=== PATIENT | female | born 2000 | race American Indian/Alaskan Native ===

== ENCOUNTER 2020-11-16 07:09 | Day surgery (SDC) | payer BC ==
[2020-11-13 13:04] LABS: Hemoglobin 12.3 gm/dl (10.1-14.3); Mean Corpuscular HGB Conc 32 % (30-34); Mean Corpuscular Volume 74 fl (79-97); Platelet Count 211 K/mm3 (140-440); Red Blood Count 5.12 M/mm3 (3.65-5.03)
[~2020-11-16 07:09] MED LIST: LACTATED RINGERS 1,000 ML IV SCH
[2020-11-16] MEDS ORDERED: ONDANSETRON 4 MG/2 ML INJ IV PRN (08:43)
[2020-11-16] MEDS ORDERED: HYDROcodone/ACETAMINOPHEN 5-325 MG TAB PO PRN (08:43)
--- NOTE | 2020-11-16 08:43 | Anesthesia Consultation ---
Anesthesia Consult and Med Hx Date of service: 11/16/20 - Airway Anesthetic Teeth Evaluation: Good (braces) ROM Head & Neck: Adequate Mental/Hyoid Distance: Adequate Mallampati Class: Class III Intubation Access Assessment: Possibly Difficult - Pre-Operative Health Status ASA Pre-Surgery Classification: ASA3 Proposed Anesthetic Plan: General - Pulmonary Hx Smoking: No Hx Respiratory Symptoms: No - Cardiovascular System Hx Hypertension: No - Central Nervous System CVA: No - Endocrine Hx Renal Disease: No Hx Liver Disease: No Hx Insulin Dependent Diabetes: No Hx Non-Insulin Dependent Diabetes: No Hx Thyroid Disease: No - Other Systems Hx Obesity: Yes (BMI 48) - Additional Comments Anesthesia Medical History Comments: No prrior [place]. Complains of significant anxiety in preop.
--- NOTE | 2020-11-16 08:43 | Anesthesia Day of Surgery ---
Anesthesia Day of Surgery - Day of Surgery Patient Examined: Yes Patient H&P Reviewed: Yes Patient is NPO: Yes
[2020-11-16] MEDS ORDERED: SCOPOLAMINE TRANSDERMAL PATCH 72 HR TD NR (09:00)
[2020-11-16] MEDS ORDERED: MIDAZOLAM 2 MG/2 ML INJ IV NR (09:00)
[2020-11-16] MEDS ORDERED: SILVER NITRATE APPLICATOR 1 EA TP ONE (09:30)
[2020-11-16] MEDS ORDERED: propofoL 200 MG/20 ML VIAL IV ONE (10:00)
[2020-11-16] MEDS ORDERED: ONDANSETRON 4 MG/2 ML INJ ONE (10:00)
[2020-11-16] MEDS ORDERED: KETOROLAC 30 MG/1 ML INJ ONE (10:00)
[2020-11-16] MEDS ORDERED: LIDOCAINE PF 100 MG/5 ML (CARDIAC SYRINGE) IV ONE (10:00)
[2020-11-16] MEDS ORDERED: dexAMETHasone 20 MG/5 ML VIAL ONE (10:00)
--- NOTE | 2020-11-16 10:21 | Short Stay Summary ---
Short Stay Documentation Date of service: 11/16/20 Narrative H&P: Patient is a 20-year-old 0 who presents with ongoing feeling of irregular vaginal bleeding and menstrual.'s. She has tried oral contraceptives without relief. We are now proceeding today with D&C hysteroscopy to clean out endometrial lining. - History H&P: obtained from office Past Medical History: No medical history Past Surgical History: No surgical history Social history: no significant social history, single - Allergies and Medications Current Medications: Allergies No Known Allergies Allergy (Unverified 11/09/20 17:27) Home Medications Medication Instructions Recorded Confirmed Last Taken Type No Known Home Medications [No 11/09/20 11/09/20 Unknown History Reported Home Medications] Active Medications Hydrocodone Bitart/Acetaminophen (Hydrocodone/Acetaminophen 5-325 Mg Tab) 2 each PO ONCE PRN PRN Reason: Pain, Moderate (4-6) Hydromorphone HCl (Hydromorphone 1 Mg/1 Ml Inj) 0.5 mg IV Q10MIN PRN PRN Reason: Pain , Severe (7-10) Stop: 11/16/20 23:00 Lactated Ringer's (Lactated Ringers) 1,000 mls @ 100 mls/hr IV DIRECT FOZIA Stop: 11/16/20 23:59 Last Admin: 11/16/20 08:23 Dose: 100 mls/hr Documented by: Midazolam HCl (Midazolam 2 Mg/2 Ml Inj) 2 mg IV PREOP NR Stop: 11/16/20 23:59 Last Admin: 11/16/20 09:16 Dose: 2 mg Documented by: Ondansetron HCl (Ondansetron 4 Mg/2 Ml Inj) 4 mg IV ONCE PRN PRN Reason: Nausea And Vomiting Scopolamine (Scopolamine Transdermal Patch 72 Hr) 1 each TD PREOP NR Stop: 11/16/20 23:00 Last Admin: 11/16/20 09:14 Dose: 1 each Documented by: - Physical exam General appearance: no acute distress Integumentary: no rash, no growths HEENT: Atraumatic Lungs: Clear to auscultation, Normal air movement Breasts: deferred Heart: Regular rate, Normal S1, Normal S2 Gastrointestinal: normal, normoactive bowel sounds Female Genitourinary: deferred Rectal Exam: deferred Extremities: no ischemia, No edema - Brief post op/procedure progress note Date of procedure: 11/16/20 Pre-op diagnosis: DUB, Menorrhagia Post-op diagnosis: same Procedure: D&C with hysteroscopy Anesthesia: MAC Findings: Normal appearing uterine cavity Surgeon: ALYX BURNS Estimated blood loss: minimal Pathology: list (endometrial currettings) Specimen disposition: to lab Condition: stable - Hospital course Hospital course: Unremarkable - Disposition Condition at discharge: Good Disposition: 01 HOME / SELF CARE / HOMELESS Short Stay Discharge Plan Activity: advance as tolerated Weight Bearing Status: Weight Bear as Tolerated Diet: regular Follow up with: ALYX BURNS MD [Staff Physician] - 14 Days Prescriptions: Ibuprofen [Motrin] 800 mg PO Q8HR PRN #30 tablet PRN Reason: Pain, Mild (1-3)
[2020-11-16] MEDS ORDERED: fentaNYL 100 MCG/2 ML INJ ONE (10:36)
[2020-11-16] MEDS ORDERED: KETAMINE/STERILE WATER 50 MG/ML SYRINGE ONE (10:50)
[2020-11-16] MEDS ORDERED: SODIUM CHLORIDE 0.9% IRRIG SOLN 2000 ML IR ONE (11:04)
--- NOTE | 2020-11-16 11:25 | Operative Report ---
Operative Report Operative Report: Pre Op Diagnosis: Abnormal uterine bleeding Post Op Diagnosis: Same Procedure: D&C with Hysteroscopy Surgeon: Jyothi Billings MD EBL: Minimal IVF: 1000 cc Urine output: 200 cleared in the procedure Specimen: Endometrial curetting Complications: None Procedure: The patient returned to the OR with IV running and in place. She was given general anesthesia without difficulty. She was then placed in dorsolithotomy position and prepped and draped in normal sterile fashion. Her bladder was drained approximately 200 cc of clear yellow urine. Attention was then turned to the patient's vagina. A bivalve speculum placed in the vagina, the uterus was then identified and grasped with single-tooth tenaculum. It was then gently sounded to approximately 7 cm in length. It was then gently dilated up to approximately 21 mm. The hysteroscope was then introduced into the uterine cavity. It revealed endometrial lining. The scope was then removed, and the curettage was performed. This was done to there was a gritty texture noted in all 4 quadrants of the uterus. A second look was made using hyst eroscope. There was excellent hemostasis. At this point all instruments the patient's vagina. She was then awakened and taken recovery in stable condition. The sponge and instrument counts were correct x2.
[2020-11-16] MEDS: HYDROmorphone 1 MG/1 ML INJ IV PRN ×2 (11:40→11:50)
[2020-11-16 12:35] VITALS: BP 120/66
--- NOTE | 2020-11-16 13:10 | Post Anesthesia Evaluation ---
- Post Anesthesia Evaluation Patient Participated: Yes Airway Patent: Yes Stable Respiratory Function: Yes Nausea/Vomiting: No Temp > 96.8F: Yes Pain Manageable: Yes Adequeate Hydration: Yes Anesthesia Complications: No
== END 2020-11-16 07:10 | disposition home or self-care (01) ==
LOC: OR 07:09
PROVIDERS: ATTEND Obstetrics & Gynecology
DX: N93.8 Other specified abnormal uterine and vaginal bleeding (principal); D50.0 Iron deficiency anemia secondary to blood loss (chronic); E66.9 Obesity, unspecified; Z79.899 Other long term (current) drug therapy; Z98.890 Other specified postprocedural states; Z68.42 Body mass index [BMI] 45.0-49.9, adult; Z20.822 Contact with and (suspected) exposure to COVID-19
CPT/HCPCS: 36415; 58558; 84703; 85027; 88305; A4217; J1100; J1170; J1885; J2001; J2250; J2405; J2704; J3010; J3490; J7120; U0003